=== PATIENT | female | born 1970 | race Caucasian/White ===

== ENCOUNTER 2017-10-14 06:15 | Day surgery (SDC) | payer MEDICAID ==
[2017-10-14] MEDS ORDERED: CEFAZOLIN 1 GM/50 ML (PMX) 50 ML IVPB ×4 (08:30→13:50)
[2017-10-14] MEDS ORDERED: SOD CHLORIDE 0.9% 1,000 ML IV ×2 (08:30)
[2017-10-14] MEDS ORDERED: POLYMYXIN/BACITRACIN 1L IRRIG IRR ×2 (08:30)
[2017-10-14] MEDS ORDERED: FENTAnyl 50 MCG/ML VIAL ×2 (13:51)
[2017-10-14] MEDS ORDERED: DIPHENHYDRAMINE 50 MG INJ ×2 (13:51)
[2017-10-14] MEDS ORDERED: LIDOCAINE 1%/EPI 30 ML INJ ×2 (13:59)
[2017-10-14] MEDS ORDERED: HEPARIN 1000 UNITS/ML 10 ML INJ ×2 (13:59)
[2017-10-14] MEDS ORDERED: LIDOCAINE 1%/EPI 30 ML INJ INJ ×2 (14:06)
[2017-10-14] MEDS ORDERED: HYDROCODONE/APAP (5/325) TAB PO ×2 (15:30)
== END 2017-10-21 09:42 | disposition home or self-care (01) ==
LOC: SDS 06:15
DX: C50.911 Malignant neoplasm of unspecified site of right female breast (principal)
CPT/HCPCS: 36561; 76942; 93306

== ENCOUNTER 2018-04-14 11:17 | Observation (INO) | payer MEDICAID ==
[2018-04-14] MEDS: SOD CHLORIDE 0.9% 1,000 ML IV ×2 (06:00→18:09)
[2018-04-14] MEDS: CEFAZOLIN 2 GM/50 ML (PMX) 50 ML IVPB (06:00)
[~2018-04-14 11:17] MED LIST: CEFAZOLIN 1 GM INJ
[2018-04-14 12:13] LABS: ADD MAN DIFF? NO
[2018-04-14 12:16] LABS: BASOPHILS % 0.4 % (0.0-2.0); EOSINOPHILS # 0.1 10^3/ul (0.0-0.5); EOSINOPHILS % 1.6 % (0.0-7.0); HEMATOCRIT 38.9 % (37.0-47.0); HEMOGLOBIN 12.5 g/dl (12.0-16.0); LYMPHOCYTES # 2.3 10^3/ul (0.8-2.9); LYMPHOCYTES % 46.1 % (15.0-51.0); MEAN CORPUSCULAR HEMOGLOBIN 29.4 pg (29.0-33.0); MEAN CORPUSCULAR HGB CONC 32.1 g/dl (32.0-37.0); MEAN CORPUSCULAR VOLUME 91.5 fl (82.0-101.0); MEAN PLATELET VOLUME 10.1 fl (7.4-10.4); MONOCYTE # 0.3 10^3/ul (0.3-0.9); MONOCYTES % 5.8 % (0.0-11.0); NEUTROPHIL # 2.3 10^3/ul (1.6-7.5); NEUTROPHILS % 45.9 % (39.0-77.0); PLATELET COUNT 175 10^3/UL (140-415); RED BLOOD COUNT 4.25 10^6/ul (4.20-5.40); RED CELL DISTRIBUTION WIDTH 13.6 % (11.5-14.5)
[2018-04-14 12:35] LABS: INR 0.95; PARTIAL THROMBOPLASTIN TIME 32.7 Sec (25.0-35.0); PROTIME 12.8 Sec (11.9-14.9)
[2018-04-14 12:37] LABS: ALANINE AMINOTRANSFERASE 25 IU/L (13-69); ALBUMIN 4.2 g/dl (3.3-4.9); ALKALINE PHOSPHATASE 98 IU/L (42-121); ANION GAP 14 (8-16); ASPARTATE AMINO TRANSFERASE 27 IU/L (15-46); BILIRUBIN,INDIRECT 0.4 mg/dl (0-1.1); BILIRUBIN,TOTAL 0.4 mg/dl (0.2-1.3); CARBON DIOXIDE 26 mmol/L (21-31); CHLORIDE 107 mmol/L (97-110); GLUCOSE 96 mg/dl (70-220); TOTAL PROTEIN 7.7 g/dl (6.1-8.1)
[2018-04-14 12:39] LABS: BLOOD UREA NITROGEN 12 mg/dl (7-20); CALCIUM 9.8 mg/dl (8.4-10.2); CREATININE 0.55 mg/dl (0.44-1.00); SODIUM 143 mmol/L (135-144)
[2018-04-14] MEDS ORDERED: GLYCOPYRROLATE 0.4 MG INJ (15:27)
[2018-04-14] MEDS ORDERED: ROCURONIUM 50 MG INJ (15:27)
[2018-04-14] MEDS ORDERED: LIDOCAINE 2% (SDV) 5 ML INJ (15:27)
[2018-04-14] MEDS ORDERED: PROPOFOL 20 ML (15:27)
[2018-04-14] MEDS ORDERED: NEOSTIGMINE 3 MG/3 ML SYRINGE (15:27)
[2018-04-14] MEDS ORDERED: MIDAZOLAM 1 MG/ML 2 ML INJ (15:27)
[2018-04-14] MEDS ORDERED: FENTAnyl 50 MCG/ML VIAL (15:27)
[2018-04-14] MEDS ORDERED: DEXAMETHASONE 4 MG/ML 1 ML INJ (15:28)
[2018-04-14] MEDS ORDERED: ONDANSETRON 4 MG INJ ×2 (15:29→17:26)
[2018-04-14] MEDS ORDERED: SUCCINYLCHOLINE CHLORIDE 100 MG/5 ML SYG IV (16:01)
[2018-04-14] MEDS ORDERED: HYDROmorphONE 1 MG/5 ML IV SYRINGE IV ×3 (17:25→17:30)
[2018-04-14] MEDS: HYDROmorphONE 1 MG/5 ML IV SYRINGE IV (17:27)
[2018-04-14] MEDS: ONDANSETRON 4 MG INJ IV (17:28)
[2018-04-14] MEDS ORDERED: HYDROCODONE/APAP (5/325) TAB PO (18:00)
[2018-04-15] MEDS: SOD CHLORIDE 0.9% 1,000 ML IV (05:50)
[2018-04-15] MEDS: HYDROCODONE/APAP (5/325) TAB GTB ×3 (05:54→13:50)
== END 2018-04-15 18:50 | disposition home or self-care (01) ==
LOC: SDS 11:17 → PP2 17:48
DX: C50.911 Malignant neoplasm of unspecified site of right female breast (principal)
CPT/HCPCS: 38525; 80053; 84703; 85025; 85610; 85730; 88307; G0378

== ENCOUNTER → 2018-06-09 | Outpatient (CLI) | payer MEDICAID | END | disposition home or self-care (01) | LOC: NUC 09:48 | DX: C50.919 Malignant neoplasm of unspecified site of unspecified female breast (principal) | CPT/HCPCS: 78306; A9503 ==

== ENCOUNTER 2018-09-14 07:42 | Inpatient (IN) | payer MEDICAID ==
[2018-09-14] MEDS ORDERED: CEFAZOLIN 2 GM/50 ML (PMX) 50 ML IVPB (08:00)
[2018-09-14] MEDS ORDERED: LIDOCAINE 2% (SDV) 5 ML INJ (08:20)
[2018-09-14] MEDS ORDERED: PROPOFOL 20 ML (08:20)
[2018-09-14] MEDS ORDERED: FENTAnyl 50 MCG/ML VIAL ×2 (08:20→13:35)
[2018-09-14] MEDS ORDERED: MIDAZOLAM 1 MG/ML 2 ML INJ (08:20)
[2018-09-14] MEDS ORDERED: NEOSTIGMINE 3 MG/3 ML SYRINGE (08:20)
[2018-09-14] MEDS ORDERED: ROCURONIUM 50 MG INJ (08:20)
[2018-09-14] MEDS ORDERED: GLYCOPYRROLATE 0.4 MG INJ (08:20)
[2018-09-14] MEDS ORDERED: DEXAMETHASONE 4 MG/ML 1 ML INJ ×3 (08:21→09:24)
[2018-09-14] MEDS ORDERED: ONDANSETRON 4 MG INJ (08:21)
[2018-09-14 08:57] LABS: INR 0.88; PT RATIO 0.9
[2018-09-14 08:58] LABS: PARTIAL THROMBOPLASTIN TIME 30.6 Sec (23.0-35.0)
[2018-09-14] MEDS ORDERED: CEFAZOLIN 1 GM INJ ×2 (09:24→11:23)
[2018-09-14] MEDS ORDERED: LABETALOL HCL 20MG INJ (11:04)
[2018-09-14] MEDS ORDERED: SUCCINYLCHOLINE CHLORIDE 100 MG/5 ML SYG IV (11:23)
[2018-09-14] MEDS ORDERED: hydrALAzine 20 MG INJ (11:38)
[2018-09-14] MEDS ORDERED: HYDROmorphONE 1 MG/5 ML IV SYRINGE IV (13:30)
[2018-09-14] MEDS ORDERED: KETOROLAC 15 MG INJ IV (13:30)
[2018-09-14] MEDS ORDERED: ALBUTEROL 0.083% (NEB) 2.5 MG/3 ML AMP HHN (13:30)
[2018-09-14] MEDS ORDERED: LABETALOL HCL 20MG INJ IV (13:30)
[2018-09-14] MEDS ORDERED: DIPHENHYDRAMINE 50 MG INJ IV (13:30)
[2018-09-14] MEDS ORDERED: OXYCODONE/ACETAMINOPHEN (5/325) TAB PO ×2 (13:30)
[2018-09-14] MEDS ORDERED: MEPERIDINE 25 MG INJ IV (13:30)
[2018-09-14] MEDS ORDERED: hydrALAzine 20 MG INJ IV (13:30)
[2018-09-14] MEDS ORDERED: FENTAnyl 50 MCG/ML VIAL IV (13:30)
[2018-09-14] MEDS ORDERED: morphine (1 MG/ML) 10ML SYRINGE IV ×2 (13:30)
[2018-09-14] MEDS ORDERED: ONDANSETRON 4 MG INJ IV (13:30)
[2018-09-14] MEDS ORDERED: METOCLOPRAMIDE 10 MG INJ IV (13:30)
[2018-09-14] MEDS: FENTAnyl 50 MCG/ML VIAL IV (13:54)
[2018-09-14] MEDS: HYDROmorphONE 1 MG/5 ML IV SYRINGE IV (14:13)
[2018-09-14] MEDS: ONDANSETRON 4 MG INJ IV (15:22)
[2018-09-14] MEDS: D5W-0.45 NACL + KCL 20 MEQ 1,000 ML IV ×2 (15:23→23:57)
[2018-09-14] MEDS: morphine 2 MG INJ IV ×2 (15:23→17:53)
[2018-09-14] MEDS: ACETAMINOPHEN 1000MG/100ML IV 100 ML IVPB (15:34)
[2018-09-14 18:22] LABS: CALCIUM 8.4 mg/dl (8.4-10.2)
[2018-09-14] MEDS: SOD CHLORIDE 0.9% 1,000 ML IV (19:22)
[2018-09-15] MEDS: ACETAMINOPHEN 1000MG/100ML IV 100 ML IVPB ×2 (00:07→12:03)
[2018-09-15] MEDS: morphine 2 MG INJ IV ×3 (00:07→18:17)
[2018-09-15 01:13] LABS: CALCIUM 8.1 mg/dl (8.4-10.2)
[2018-09-15] MEDS: D5W-0.45 NACL + KCL 20 MEQ 1,000 ML IV ×3 (05:19→18:16)
[2018-09-15 06:45] LABS: CALCIUM 7.8 mg/dl (8.4-10.2)
[2018-09-15] MEDS: CALCIUM CARBONATE 500 MG CHEW TAB PO ×3 (08:41→18:27)
[2018-09-15 11:00] LABS: ADD MAN DIFF? NO
[2018-09-15 11:05] LABS: WHITE BLOOD COUNT 8.3 10^3/ul (4.8-10.8)
[2018-09-15 11:05] LABS: EOSINOPHILS % 0.2 % (0.0-7.0); HEMATOCRIT 33.8 % (37.0-47.0); HEMOGLOBIN 11.2 g/dl (12.0-16.0); LYMPHOCYTES # 2.5 10^3/ul (0.8-2.9); LYMPHOCYTES % 29.8 % (15.0-51.0); MEAN CORPUSCULAR HEMOGLOBIN 30.7 pg (29.0-33.0); MEAN CORPUSCULAR HGB CONC 33.1 g/dl (32.0-37.0); MEAN CORPUSCULAR VOLUME 92.6 fl (82.0-101.0); MEAN PLATELET VOLUME 9.6 fl (7.4-10.4); MONOCYTE # 0.5 10^3/ul (0.3-0.9); MONOCYTES % 6.4 % (0.0-11.0); NEUTROPHIL # 5.3 10^3/ul (1.6-7.5); NEUTROPHILS % 63.2 % (39.0-77.0); PLATELET COUNT 165 10^3/UL (140-415); RED BLOOD COUNT 3.65 10^6/ul (4.20-5.40); RED CELL DISTRIBUTION WIDTH 13.2 % (11.5-14.5)
[2018-09-15 11:21] LABS: CALCIUM 7.6 mg/dl (8.4-10.2)
[2018-09-15 11:21] LABS: ANION GAP 10 (5-13); BLOOD UREA NITROGEN 6 mg/dl (7-20); CALCIUM 7.7 mg/dl (8.4-10.2); CARBON DIOXIDE 27 mmol/L (21-31); CHLORIDE 104 mmol/L (97-110); CREATININE 0.49 mg/dl (0.44-1.00); Estimated GFR > 60 mL/min (>60); GLUCOSE 123 mg/dl (70-220); POTASSIUM 3.9 mmol/L (3.5-5.1); SODIUM 141 mmol/L (135-144)
[2018-09-15 22:50] LABS: CALCIUM 7.4 mg/dl (8.4-10.2)
[2018-09-16] MEDS: CALCIUM CARBONATE 500 MG CHEW TAB PO ×4 (00:36→18:06)
[2018-09-16] MEDS: D5W-0.45 NACL + KCL 20 MEQ 1,000 ML IV ×4 (02:03→21:05)
[2018-09-16] MEDS: morphine 2 MG INJ IV (04:50)
[2018-09-16 05:52] LABS: ALANINE AMINOTRANSFERASE 29 IU/L (13-69); ALBUMIN 3.4 g/dl (3.3-4.9); ALBUMIN/GLOBULIN RATIO 1.25; ALKALINE PHOSPHATASE 85 IU/L (42-121); ANION GAP 7 (5-13); ASPARTATE AMINO TRANSFERASE 40 IU/L (15-46); BILIRUBIN,INDIRECT 0.3 mg/dl (0-1.1); BILIRUBIN,TOTAL 0.3 mg/dl (0.2-1.3); BLOOD UREA NITROGEN 4 mg/dl (7-20); CALCIUM 7.8 mg/dl (8.4-10.2); CARBON DIOXIDE 30 mmol/L (21-31); CHLORIDE 106 mmol/L (97-110); CREATININE 0.53 mg/dl (0.44-1.00); Estimated GFR > 60 mL/min (>60); GLUCOSE 116 mg/dl (70-220); POTASSIUM 4.1 mmol/L (3.5-5.1); SODIUM 143 mmol/L (135-144); TOTAL PROTEIN 6.1 g/dl (6.1-8.1)
[2018-09-16] MEDS: ACETAMINOPHEN 500 MG TAB PO (15:35)
[2018-09-16 18:53] LABS: CALCIUM 8.4 mg/dl (8.4-10.2)
[2018-09-17] MEDS: CALCIUM CARBONATE 500 MG CHEW TAB PO ×3 (00:45→12:57)
[2018-09-17 05:06] LABS: ADD MAN DIFF? NO
[2018-09-17 05:08] LABS: BASOPHILS % 0.3 % (0.0-2.0); EOSINOPHILS # 0.1 10^3/ul (0.0-0.5); EOSINOPHILS % 1.2 % (0.0-7.0); HEMATOCRIT 34.6 % (37.0-47.0); HEMOGLOBIN 11.4 g/dl (12.0-16.0); LYMPHOCYTES # 2.8 10^3/ul (0.8-2.9); LYMPHOCYTES % 49.1 % (15.0-51.0); MEAN CORPUSCULAR HEMOGLOBIN 30.3 pg (29.0-33.0); MEAN CORPUSCULAR HGB CONC 32.9 g/dl (32.0-37.0); MEAN PLATELET VOLUME 9.7 fl (7.4-10.4); MONOCYTE # 0.3 10^3/ul (0.3-0.9); MONOCYTES % 5.4 % (0.0-11.0); NEUTROPHIL # 2.5 10^3/ul (1.6-7.5); NEUTROPHILS % 43.7 % (39.0-77.0); PLATELET COUNT 165 10^3/UL (140-415); RED BLOOD COUNT 3.76 10^6/ul (4.20-5.40); RED CELL DISTRIBUTION WIDTH 12.8 % (11.5-14.5)
[2018-09-17 05:08] LABS: WHITE BLOOD COUNT 5.7 10^3/ul (4.8-10.8)
[2018-09-17] MEDS: D5W-0.45 NACL + KCL 20 MEQ 1,000 ML IV (05:19)
[2018-09-17 05:30] LABS: CALCIUM 8.4 mg/dl (8.4-10.2)
== END 2018-09-17 14:30 | disposition home or self-care (01) | DRG 627 ==
LOC: SDS 07:42 → MS1 09-15 21:29 → SDS 13:41 → MS1 13:41
PROC: 0GTK0ZZ Resection of Thyroid Gland, Open Approach (ICD-10-PCS; principal; 2018-09-14 09:30)
PROC: 0KB30ZZ Excision of Left Neck Muscle, Open Approach (ICD-10-PCS; 2018-09-14 09:30)
DX: C73 Malignant neoplasm of thyroid gland (principal); Z85.3 Personal history of malignant neoplasm of breast; R13.10 Dysphagia, unspecified; R05 Cough
CPT/HCPCS: 71046; 80048; 80053; 82310; 84703; 85025; 85610; 85730; 88307